=== PATIENT | female | born 1965 | race Caucasian/White ===

== ENCOUNTER 2022-06-11 15:22 | Emergency (ER) | payer OTHER ==
[~2022-06-11] VITALS: Ht 167.6 cm; Wt 79.0 kg
[2022-06-11 15:40] VITALS: BP 124/68
[2022-06-11] MEDS ORDERED: TOPUD PO (17:48)
[2022-06-11] MEDS ORDERED: IBUP-2028 MT (17:48)
[2022-06-11] MEDS ORDERED: ACETAMINOPHEN 325MG TABLET PO ONE (18:00)
[2022-06-11] MEDS ORDERED: IBUPROFEN 400MG TABLET PO ONE (18:00)
== END 2022-06-11 19:09 | disposition home or self-care (01) ==
LOC: ER 15:22
DX: S00.12XD Contusion of left eyelid and periocular area, subsequent encounter (principal); E11.9 Type 2 diabetes mellitus without complications; X58.XXXA Exposure to other specified factors, initial encounter; Y93.89 Activity, other specified; Y92.89 Other specified places as the place of occurrence of the external cause; Y99.8 Other external cause status
CPT/HCPCS: 70486; 99284